=== PATIENT | male | born 1995 | race Native Hawaiian/Other Pacific Islander ===

== ENCOUNTER 2017-04-02 20:02 | Emergency (ER) | payer SELFPAY ==
[~2017-04-02] VITALS: Ht 177.8 cm; Wt 63.6 kg
[2017-04-02 20:05] VITALS: BP 112/72; PULSE 69; RESP 16; TEMP 98.4; O2SAT 100
--- NOTE | 2017-04-02 20:31 | PD ---
HPI . left foot pain x 3 days Chief Complaint: Injury Time Seen by Provider: 20:28 Travel History International Travel<30 days: No Contact w/Intl Traveler<30days: No Traveled to known affect area: No History of Present Illness HPI 21-year-old male with no significant past medical history here with complaints of left foot pain. Patient says started proximally 3 days ago. He admits to playing soccer. He says that the pain is so much that he is unable to bear weight on this left foot. He also admits to some swelling. He has tried over- the-counter painkillers, which he cannot recall the name of, without significant relief. PFSH Past Medical History Medical History: Denies Significant Hx Tetanus Vaccination: < 5 Years Past Surgical History Surgical History: No Previous Surgery Social History Alcohol Use: No Tobacco Use: No Substance Use: No Allergies-Medications (Allergen,Severity, Reaction): Coded Allergies: No Known Allergies (Unverified , 04/02/17) Reported Meds & Prescriptions Reported Meds & Active Scripts Active Naproxen 500 Mg Tab 500 Mg PO BID 10 Days Bactrim DS (Sulfamethoxazole-Trimethoprim) 800-160 Mg Tab 1 Tab PO BID Keflex (Cephalexin) 500 Mg Cap 500 Mg PO Q6H 7 Days Review of Systems General / Constitutional: No: Fever Eyes: No: Visual changes HENT: No: Headaches Cardiovascular: No: Chest Pain or Discomfort Respiratory: No: Shortness of Breath Gastrointestinal: No: Abdominal Pain Genitourinary: No: Dysuria Musculoskeletal: Positive: Pain (left foot pain ) Skin: No Rash Neurologic: No: Weakness Psychiatric: No: Depression Endocrine: No: Polydipsia Hematologic/Lymphatic: No: Easy Bruising Physical Exam Narrative GENERAL: AAO x 3, no acute distress, Well-nourished, well-developed patient. SKIN: Warm and dry. No visible rashes or bruising. HEAD: Normocephalic and atraumatic. EYES: No scleral icterus. No injection or drainage. ENT: No nasal drainage noted. Mucous membranes pink. Airway patent. NECK: Supple, trachea midline. No JVD. CARDIOVASCULAR: Regular rate and rhythm without murmurs, gallops, or rubs. RESPIRATORY: Breath sounds equal bilaterally. No accessory muscle use. No rhonchi or rales. GASTROINTESTINAL: visual inspection EXTREMITIES: No cyanosis. left foot proximal to toes with some mild edema, tender to touch. limited ROM of toes due to pain BACK: No obvious deformity. NEURO: CN II-12 intact, cotton washer strength normal b/l, UE and LE 5/5, no focal deficits PSYCH: AAO x 3, normal affect. Data Data Last Documented VS Vital Signs Date Time Temp Pulse Resp B/P (MAP) Pulse Ox O2 Delivery O2 Flow Rate FiO2 04/02/17 21:13 04/02/17 20:05 98.4 69 16 100 Room Air Orders Orders Foot, Complete ([id number]) (04/02/17 20:31) [facility] Medical Decision Making Medical Screen Exam Complete: Yes Emergency Medical Condition: Yes Medical Record Reviewed: Yes Differential Diagnosis stress fracture, toe fracture, sprain Narrative Course 21 yr old male here with left foot pain. Xray imaging ordered. I have discussed the case with my attending Dr. Fofana who will make recommendations for patient's disposition. Scripts Naproxen (Naproxen) 500 Mg Tab 500 MG PO BID for 10 Days, TAB 0 Refills Prov: Na Fofana MD 04/02/17 Sulfamethoxazole-Trimethoprim (Bactrim DS) 800-160 Mg Tab 1 TAB PO BID for Infection, #14 TAB 0 Refills Prov: Na Fofana MD 04/02/17 Cephalexin (Keflex) 500 Mg Cap 500 MG PO Q6H for Infection for 7 Days, CAP 0 Refills Prov: Na Fofana MD 04/02/17 Condition: Stable Monae Capellan Apr 02, 2017 20:31
--- NOTE | 2017-04-02 20:52 | RADRPT ---
EXAM DATE/TIME: 04/02/2017 20:31 [facility] COMPARISON: No previous studies available for comparison. INDICATIONS : Left foot pain. Swelling. MEDICAL HISTORY : None. SURGICAL HISTORY : None. ENCOUNTER: Initial ACUITY: 2 days PAIN SCORE: 6/10 LOCATION: Left lateral FINDINGS: Three view examination of the left foot demonstrates no acute fracture or malalignment. There is appa rent mild soft tissue prominence over the dorsum of the midfoot. The tarsal bones appear intact. The interphalangeal and metatarsophalangeal joints are intact. The calcaneus is intact. Bony mineraliz ation is normal. CONCLUSION: Appearance soft tissue prominence over the dorsum of the midfoot with no underlying bony abnormality. . Mo Medina MD on April 02, 2017 at 20:49 Board Certified Radiologist. This report was verified electronically.
[2017-04-02] MEDS ORDERED: BACT800T5 PO (21:01)
[2017-04-02] MEDS ORDERED: CEPH-460 PO (21:01)
[2017-04-02] MEDS ORDERED: NAPR500T PO (21:01)
--- NOTE | 2017-04-02 21:01 | PD ---
Data Data Last Documented VS Vital Signs Date Time Temp Pulse Resp B/P (MAP) Pulse Ox O2 Delivery O2 Flow Rate FiO2 04/02/17 20:05 98.4 69 16 112/72 (85) 100 Room Air Orders Orders Foot, Complete ([id number]) (04/02/17 20:31) [facility] Supervised Visit with HANNY: Yes Narrative Course The history, exam, and medical decision-making in the associated midlevel provider note were completed with my assistance. I reviewed and agree with the findings presented. I attest that I had a [id number] encounter with the patient on the same day, and personally performed and documented my assessment and findings in the medical record. *My assessment and Findings: This is a 21-year-old male who presents to the emergency department with swelling of the left dorsal aspect of the foot and warmth. On exam the dorsal area of the foot is warm. He says he's had some subjective fevers and chills. He denies any injury but does say he plays soccer. My suspicion is that he has a sprain or possibly an occult stress fracture however he may have a mild cellulitis and given his reported systemic symptoms I think it's reasonable to cover him with antibiotics. He was given Keflex, Bactrim and an anti-inflammatory and will be referred to a logistics associate. Diagnosis Primary Impression: Foot pain Qualified Codes: M79.672 - Pain in left foot Patient Instructions: General Instructions Additional Instruction: If you develop fever, chills, increasing warmth or pain of your foot return to the emergency room. Complete your course of antibiotics as prescribed. Follow- up with a logistics associate as soon as possible. Med/Other Pt SpecificInfo: Prescription(s) given Scripts Naproxen (Naproxen) 500 Mg Tab 500 MG PO BID for 10 Days, TAB 0 Refills Prov: Na Fofana MD 04/02/17 Sulfamethoxazole-Trimethoprim (Bactrim DS) 800-160 Mg Tab 1 TAB PO BID for Infection, #14 TAB 0 Refills Prov: Na Fofana MD 04/02/17 Cephalexin (Keflex) 500 Mg Cap 500 MG PO Q6H for Infection for 7 Days, CAP 0 Refills Prov: Na Fofana MD 04/02/17 Disposition: 01 DISCHARGE HOME Condition: Stable Highet,Na H. MD Apr 02, 2017 21:01
== END 2017-04-02 21:33 | disposition home or self-care (01) ==
LOC: NEPD 20:02
DX: M79.672 Pain in left foot (principal); X50.9XXA Other and unspecified overexertion or strenuous movements or postures, initial encounter; Y93.66 Activity, soccer
CPT/HCPCS: 73630; 99284

== ENCOUNTER 2017-04-20 20:09 | Emergency (ER) | payer SELFPAY ==
[~2017-04-20] VITALS: Ht 177.8 cm; Wt 70.0 kg
[~2017-04-20 20:09] MED LIST: BACT800T5 PO; CEPH-460 PO; NAPR500T PO
[2017-04-20 20:11] VITALS: BP 115/66; PULSE 69; RESP 15; TEMP 99.5; O2SAT 99
--- NOTE | 2017-04-20 20:20 | PD ---
Physical Exam Date Seen by Provider: Apr 20, 2017 Time Seen by Provider: 20:17 Narrative 21-year-old Afro-[place] male presents to emergency department with with recurrent pain and swelling to the left foot. Patient was recently treated with Bactrim and Keflex for similar complaints but worse approximately one month ago. Patient states it improvement after stopping the medication and seems to be returning. Pain is currently an 8 out of 10. Patient states fever 2 days prior to this visit. Vital signs are stable. Patient is awaiting mental placement. Data Data Last Documented VS Vital Signs Date Time Temp Pulse Resp B/P (MAP) Pulse Ox O2 Delivery O2 Flow Rate FiO2 04/20/17 20:11 99.5 69 15 115/66 (82) 99 Room Air [facility] Medical Record Reviewed: Yes Supervised Visit with HANNY: Yes Condition: Stable Pollo Benavides Apr 20, 2017 20:20
[2017-04-20] MEDS ORDERED: KETOROLAC TROMETHAMINE 60 MG/2 ML (IM) VIAL IM ONE (21:00)
--- NOTE | 2017-04-20 21:13 | RADRPT ---
EXAM DATE/TIME: 04/20/2017 20:56 [facility] COMPARISON: FOOT LEFT COMPLETE ([id number]), April 02, 2017, 20:31. INDICATIONS : Left foot pain and swelling, pain plantar surface with no trauma. MEDICAL HISTORY : None. SURGICAL HISTORY : None. ENCOUNTER: Initial ACUITY: 2 weeks PAIN SCORE: 8/10 LOCATION: Left plantar surface FINDINGS: Three view examination of the left foot demonstrates no soft tissue swelling, dislocation, or fractur e. The tarsal bones appear intact. The interphalangeal and metatarsophalangeal joints are intact. The calcaneus is intact. Bony mineralization is normal. CONCLUSION: Radiographic appearance of the left foot is within normal limits. Ryan Vargas MD on April 20, 2017 at 21:11 Board Certified Radiologist. This report was verified electronically.
--- NOTE | 2017-04-20 21:38 | PD ---
HPI Chief Complaint: Edema Time Seen by Provider: 20:36 Travel History International Travel<30 days: No Contact w/Intl Traveler<30days: No Traveled to known affect area: No History of Present Illness HPI Patient is a 21-year-old male comes in complaining of pain and swelling to his left foot. He says that this happened about a month ago and he was given pain medicine and antibiotics make a better. He says he is worried that it is happening again. He denies any injury. Does wear flip-flops all day. He says the pain is on the side of his foot near his toes. He denies any fever or chills. He denies any other symptoms. [facility] Past Medical History Medical History: Denies Significant Hx Past Surgical History Surgical History: No Previous Surgery Social History Alcohol Use: No Tobacco Use: No Substance Use: No Allergies-Medications (Allergen,Severity, Reaction): Coded Allergies: No Known Allergies (Unverified , 04/20/17) Reported Meds & Prescriptions Reported Meds & Active Scripts Active No Active Prescriptions or Reported Medications Review of Systems General / Constitutional: No: Fever, Chills HENT: No: Headaches, Lightheadedness Cardiovascular: No: Chest Pain or Discomfort Respiratory: No: Shortness of Breath Gastrointestinal: No: Nausea, Vomiting Musculoskeletal: Positive: Pain Skin: No Rash, No Change in Pigmentation Neurologic: No: Weakness, Dizziness Physical Exam Narrative GENERAL: Awake and alert, in no acute distress. SKIN: Focused skin assessment warm/dry. No erythema or warmth or signs of infection. HEAD: Atraumatic. Normocephalic. EYES: Pupils equal and round. No scleral icterus. ENT: Mucous membranes pink and moist. CARDIOVASCULAR: Regular rate and rhythm. No murmur appreciated. RESPIRATORY: No accessory muscle use. Clear to auscultation. Breath sounds equal bilaterally. MUSCULOSKELETAL: No obvious deformities. No clubbing. No cyanosis. No edema. No bony tenderness to left foot. Pedal pulses intact. Tender along the plantar surface of the foot, mostly over the arch. NEUROLOGICAL: Awake and alert. No obvious cranial nerve deficits. Motor grossly within normal limits. Normal speech. Data Data Last Documented VS Vital Signs Date Time Temp Pulse Resp B/P (MAP) Pulse Ox O2 Delivery O2 Flow Rate FiO2 04/20/17 20:11 99.5 69 15 115/66 (82) 99 Room Air Orders Orders Foot, Complete ([id number]) (04/20/17 ) Ketorolac Inj (Toradol Inj) (04/20/17 21:00) [facility] Medical Decision Making Medical Screen Exam Complete: Yes Emergency Medical Condition: Yes Medical Record Reviewed: Yes Differential Diagnosis Plantar fasciitis versus foot sprain versus fracture Narrative Course Patient is a 21-year-old male comes in complaining of left foot pain. Exam shows tenderness to the plantar surface of the foot, consistent with plantar fasciitis. Patient given a dose of Toradol. X-ray of the foot obtained shows no acute abnormalities. He is advised ice his foot intake ibuprofen as needed for pain. Advised follow-up with a primary care doctor. Advised to wear more supportive shoes. Advised to return to the ED as needed for any worsening symptoms. Diagnosis Primary Impression: Plantar fasciitis of left foot Patient Instructions: General Instructions, Plantar Fasciitis (ED), Plantar Fasciitis Exercises (ED) Additional Instructions: Ice your foot several times a day. Take ibuprofen as needed for pain. Wear supportive shoes. Return to the ED as needed for any worsening symptoms. Scripts No Active Prescriptions or Reported Meds Disposition: 01 DISCHARGE HOME Condition: Stable Dianna Arvizu MD Apr 20, 2017 21:38
== END 2017-04-20 22:09 | disposition home or self-care (01) ==
LOC: NEPD 20:09
DX: M72.2 Plantar fascial fibromatosis (principal)
CPT/HCPCS: 73630; 96372; 99284; J1885